=== PATIENT | female | born 1940 | race Caucasian/White ===

== ENCOUNTER 2019-05-24 10:38 | Observation (INO) | payer MEDICARE, BC ==
[~2019-05-24] VITALS: Ht 165.1 cm; Wt 70.5 kg
[~2019-05-24 10:38] MED LIST: EZET1TAB19 PO; [UNRECOGNIZED DRUG - CODE] PO
[2019-05-24] MEDS ORDERED: diltiazem-D5W 125mg/125ml 125 ML IV ONE (10:48)
[2019-05-24] MEDS ORDERED: diltiazem 5mg/ml 5ml inj. IV ONE ×2 (10:50→11:35)
[2019-05-24] MEDS ORDERED: diltiazem-NS 100mg/100ml 100 ML IV ONE (10:51)
--- NOTE | 2019-05-24 11:00 | NUR ---
Dr. Gomez stated to administer bolud dose of cardizem and hold off on administering drip at this time.
[2019-05-24 11:16] LABS: BASOPHILS # (AUTO) 0.1 X10'3 (0-0.2); EOSINOPHILS % (AUTO) 0.1 % (0-6); HEMATOCRIT 37.9 % (35.0-45.0); MEAN PLATELET VOLUME 6.3 FL (7.4-10.4); MONOCYTES # (AUTO) 0.8 X10'3 (0-0.9); NEUTROPHILS # (AUTO) 7.8 X10'3 (1.8-7.7)
[2019-05-24 11:18] LABS: BASOPHILS % (AUTO) 0.9 % (0-1); HEMOGLOBIN 13.1 g/dl (12.0-16.0); LYMPHOCYTES # (AUTO) 1.4 X10'3 (1.1-4.8); LYMPHOCYTES % (AUTO) 14.2 % (21-51); MEAN CORPUSCULAR HEMOGLOBIN 30.7 PG (27.0-31.0); MEAN CORPUSCULAR HGB CONC 34.5 g/dL (33.0-36.5); MONOCYTES % (AUTO) 7.7 % (2-12); NEUTROPHILS % (AUTO) 77.1 % (42-75); PLATELET COUNT 756 X10'3 (140-440); RED BLOOD COUNT 4.26 X10'6 (4.20-5.60); WHITE BLOOD COUNT 10.1 X10'3 (4.5-11.0)
[2019-05-24 11:23] LABS: PARTIAL THROMBOPLASTIN TIME 32 SECONDS (22-32)
[2019-05-24 11:27] LABS: ALANINE AMINOTRANSFERASE 24 U/L (12-78); ALBUMIN 3.3 G/DL (3.4-5.0); ALBUMIN/GLOBULIN RATIO 0.7 (1.1-1.5); ALKALINE PHOSPHATASE 107 IU/L (46-116); ANION GAP 11 (8-16); ASPARTATE AMINO TRANSFERASE 14 U/L (10-37); BILIRUBIN,TOTAL 0.4 MG/DL (0.1-1.0); BLOOD UREA NITROGEN 13 MG/DL (7-18); BUN/CREATININE RATIO 12.9 (6.6-38.0); CALCIUM 9.3 MG/DL (8.5-10.1); CHLORIDE 95 MMOL/L (99-107); CREATININE 1.01 MG/DL (0.40-0.90); GLUCOSE 116 MG/DL (70-104); POTASSIUM 3.7 MMOL/L (3.5-5.1); SODIUM 133 MMOL/L (135-145); TOTAL CARBON DIOXIDE 26.8 MMOL/L (24-32); TOTAL PROTEIN 7.9 G/DL (6.4-8.2); eGFR 53 ML/MIN
--- NOTE | 2019-05-24 11:30 | NUR ---
Notified Dr. Gomez regarding heart patients heart rate at 120-140 beats/min afib with RVR Addendum: 05/24/19 at 1144 by HKISER with no change in rate. Dr. Gomez stated he would order another 10 mg IV cardizem as a bolus dose now. Continue to hold off on cardizem drip at this time
[2019-05-24 11:34] LABS: MAGNESIUM 1.9 MG/DL (1.5-2.4)
[2019-05-24] MEDS ORDERED: metoprolol tartrate 1mg/ml inj IV ONE (12:00)
[2019-05-24] MEDS ORDERED: amiodarone 150mg/dext, iso-os 100 ML IV ONE (12:10)
[2019-05-24] MEDS ORDERED: etomidate 2mg/ml inj. IV ONE (12:10)
--- NOTE | 2019-05-24 12:48 | NUR ---
Synchronized Cardioversion with 75 J, rhythm converted at 1247 to normal sinus rhythm at 82 beats/min. Addendum: 05/24/19 at 1254 by HKISER Etomidate administered at 1245.
[2019-05-24] MEDS: amiodarone/D5 360MG/200ML BAG 200 ML IV SCH ×2 (13:19→18:32)
[2019-05-24] MEDS ORDERED: acetaminophen 325mg tablet PO PRN (13:20)
[2019-05-24] MEDS ORDERED: ondansetron/PF 4mg/2ml inj IV PRN (13:20)
[2019-05-24] MEDS ORDERED: mag hydrox/Alum hydrox/simeth 30ml oral suspension PO PRN (13:20)
[2019-05-24] MEDS ORDERED: magnesium hydroxide 30ml (MOM) UD suspension PO PRN (13:20)
[2019-05-24] MEDS ORDERED: TIMO5DRO32 EACHEYE (13:57)
[2019-05-24] MEDS ORDERED: APIX5TAB3 PO (13:57)
[2019-05-24] MEDS ORDERED: DILT-35 PO (13:57)
[2019-05-24 15:00] VITALS: BP 149/93
[2019-05-24] MEDS: normal saline 1000ml 1,000 ML IV SCH (15:14)
--- NOTE | 2019-05-24 15:30 | NUR ---
Patient in room PCU 3015. I have received report from Neal DIMAS, ED and had the opportunity to ask questions and assume patient care.
--- NOTE | 2019-05-24 15:55 | NUR ---
Pt arrive to floor at 1545. Pt oriented to room and call light. Pt hooked up to mobile 64. Pt's vitals WNL
[2019-05-24 16:00] VITALS: BP 149/93
[2019-05-24] MEDS ORDERED: OMEP20CA11 PO (16:49)
[2019-05-24] MEDS ORDERED: AMLO-314 PO (16:49)
[2019-05-24] MEDS ORDERED: EZET1TAB33 PO (16:49)
[2019-05-24] MEDS ORDERED: DOCU-148 PO (16:49)
[2019-05-24] MEDS ORDERED: OFLO5DRO5 OP (16:49)
[2019-05-24 17:00] VITALS: BP 139/85
[2019-05-24 18:00] VITALS: BP 156/86
--- NOTE | 2019-05-24 18:15 | NUR ---
Problems reprioritized. Patient report given, questions answered & plan of care reviewed with Joyce DIMAS.
[2019-05-24 20:00] VITALS: BP 129/66
[2019-05-24] MEDS: ofloxacin 0.3% 5ml otic drops EACH EAR SCH (21:00)
--- NOTE | 2019-05-24 21:04 | NUR ---
pt was found out on the floor and she stated that she put her foot on the table and slipped on the ground while trying to use the restroom. pt was able to get up by herself even when staff offered help. Addendum: 05/25/19 at 0649 by Joyce Oliva RN notes was putting on the wrong pt, pt did not fall on 05/24, charge nurse and day attending nurse noted
[2019-05-24] MEDS: apixaban 5mg tablet PO SCH (21:18)
[2019-05-24] MEDS: diltiazem CD 120mg capsule (once-daily) PO SCH (21:19)
[2019-05-24 22:00] VITALS: BP 143/78
[2019-05-25] VITALS (8 sets, daily range): BP systolic 105–154; BP diastolic 63–86
[2019-05-25] MEDS: amiodarone/D5 360MG/200ML BAG 200 ML IV SCH ×2 (00:18→07:57)
[2019-05-25 02:19] LABS: EOSINOPHILS % (AUTO) 0.3 % (0-6); HEMOGLOBIN 11.6 g/dl (12.0-16.0); LYMPHOCYTES # (AUTO) 1.9 X10'3 (1.1-4.8); MONOCYTES # (AUTO) 0.6 X10'3 (0-0.9)
[2019-05-25 02:20] LABS: BASOPHILS # (AUTO) 0.1 X10'3 (0-0.2); BASOPHILS % (AUTO) 0.8 % (0-1); HEMATOCRIT 33.5 % (35.0-45.0); LYMPHOCYTES % (AUTO) 25.7 % (21-51); MEAN CORPUSCULAR HEMOGLOBIN 30.6 PG (27.0-31.0); MEAN CORPUSCULAR HGB CONC 34.5 g/dL (33.0-36.5); MEAN CORPUSCULAR VOLUME 88.8 FL (78-98); MEAN PLATELET VOLUME 6.1 FL (7.4-10.4); MONOCYTES % (AUTO) 7.7 % (2-12); NEUTROPHILS # (AUTO) 4.9 X10'3 (1.8-7.7); NEUTROPHILS % (AUTO) 65.5 % (42-75); PLATELET COUNT 655 X10'3 (140-440); RED BLOOD COUNT 3.78 X10'6 (4.20-5.60); RED CELL DISTRIBUTION WIDTH 15.8 % (11.5-14.5); WHITE BLOOD COUNT 7.5 X10'3 (4.5-11.0)
[2019-05-25 02:32] LABS: ALBUMIN 2.7 G/DL (3.4-5.0); ANION GAP 6 (8-16); BLOOD UREA NITROGEN 11 MG/DL (7-18); BUN/CREATININE RATIO 14.3 (6.6-38.0); CHLORIDE 97 MMOL/L (99-107); CREATININE 0.77 MG/DL (0.40-0.90); GLUCOSE 102 MG/DL (70-104); SODIUM 131 MMOL/L (135-145); TOTAL CARBON DIOXIDE 28.5 MMOL/L (24-32); eGFR 72 ML/MIN
[2019-05-25 02:35] LABS: POTASSIUM 2.8 MMOL/L (3.5-5.1)
[2019-05-25] MEDS ORDERED: potassium CL 10mEq/100ml bag 100 ML IV PRN (02:55)
[2019-05-25] MEDS ORDERED: potassium Cl 20 mEq SR tablet PO PRN (02:55)
[2019-05-25] MEDS: potassium Cl 20 mEq SR tablet PO PRN ×3 (03:12→20:40)
--- NOTE | 2019-05-25 06:00 | NUR ---
Patient in room PCU 3015. I have received report from Joyce DIMAS and had the opportunity to ask questions and assume patient care.
[2019-05-25] MEDS: normal saline 1000ml 1,000 ML IV SCH (06:25)
[2019-05-25] MEDS: ofloxacin 0.3% 5ml otic drops EACH EAR SCH ×4 (08:00→20:41)
[2019-05-25] MEDS: pantoprazole 40mg Tablet.DR PO SCH (08:00)
[2019-05-25] MEDS: apixaban 5mg tablet PO SCH ×2 (08:01→20:40)
[2019-05-25] MEDS: docusate sod 100mg capsule PO SCH (08:01)
[2019-05-25] MEDS: atorvastatin 20mg tablet PO SCH (08:01)
[2019-05-25] MEDS: ezetimibe 10mg tablet PO SCH (08:01)
[2019-05-25] MEDS: timolol maleate 0.25% ophthalmic drops 10ml EACHEYE SCH (08:02)
[2019-05-25] MEDS: amiodarone 200mg tablet PO SCH ×3 (10:10→20:40)
--- NOTE | 2019-05-25 15:48 | NUR ---
Malnutrition consult: Pt and son seen at bedside. Pt reports 30 lb wt loss in 6 months r/t decreased appetite with unknown etiology. This is severe wt loss of 16% in 6 months. Per son patient was on a cruise 1 month ago and ate really well during that time. Pt also states if she doesn't have enough of an appetite for a meal she will drink and Ensure. Both pt and son report pt eating almost 100% of lunch today and pt states her appetite is really good now and has been over the last month. Pt with no significant decrease in muscle strength, no edema, and no visible fat/muscle wasting. Pt currently lacks a minimum of two criteria for malnutrition. Son requests community referrals to help with meal preparation as pt does not cook and currently pt lives with daughter who also does not cook, RD consulted SW. Pt denies any food allergies, difficulty chewing/swallowing, or constipation/diarrhea. RD contact information provided. Will continue to follow. Addendum: 05/25/19 at [address] Amended: Links added.
--- NOTE | 2019-05-25 17:31 | NUR ---
Problems reprioritized. Patient report given, questions answered & plan of care reviewed with Talia DIMAS.
--- NOTE | 2019-05-25 17:39 | NUR ---
Patient in room PCU 3018. I have received report from WING Willis and had the opportunity to ask questions and assume patient care.
[2019-05-25] MEDS: diltiazem CD 120mg capsule (once-daily) PO SCH (20:40)
[2019-05-26 03:00] VITALS: BP 150/85
[2019-05-26 04:12] LABS: BASOPHILS # (AUTO) 0.1 X10'3 (0-0.2); LYMPHOCYTES # (AUTO) 1.4 X10'3 (1.1-4.8); MEAN PLATELET VOLUME 6.2 FL (7.4-10.4)
[2019-05-26 04:14] LABS: EOSINOPHILS % (AUTO) 0.5 % (0-6); HEMOGLOBIN 12.6 g/dl (12.0-16.0); LYMPHOCYTES % (AUTO) 22.4 % (21-51); MEAN CORPUSCULAR HEMOGLOBIN 31.1 PG (27.0-31.0); MEAN CORPUSCULAR HGB CONC 34.9 g/dL (33.0-36.5); MEAN CORPUSCULAR VOLUME 89.2 FL (78-98); MONOCYTES # (AUTO) 0.5 X10'3 (0-0.9); MONOCYTES % (AUTO) 8.7 % (2-12); NEUTROPHILS # (AUTO) 4.2 X10'3 (1.8-7.7); NEUTROPHILS % (AUTO) 67.4 % (42-75); PLATELET COUNT 600 X10'3 (140-440); RED BLOOD COUNT 4.03 X10'6 (4.20-5.60); RED CELL DISTRIBUTION WIDTH 16.1 % (11.5-14.5); WHITE BLOOD COUNT 6.2 X10'3 (4.5-11.0)
[2019-05-26 04:18] LABS: ALBUMIN 2.9 G/DL (3.4-5.0); ANION GAP 6 (8-16); BLOOD UREA NITROGEN 7 MG/DL (7-18); BUN/CREATININE RATIO 9.9 (6.6-38.0); CALCIUM 9.2 MG/DL (8.5-10.1); CHLORIDE 102 MMOL/L (99-107); CREATININE 0.71 MG/DL (0.40-0.90); GLUCOSE 94 MG/DL (70-104); MAGNESIUM 1.7 MG/DL (1.5-2.4); POTASSIUM 3.8 MMOL/L (3.5-5.1); SODIUM 134 MMOL/L (135-145); TOTAL CARBON DIOXIDE 26.2 MMOL/L (24-32); eGFR 79 ML/MIN
[2019-05-26 06:00] VITALS: BP 163/86
--- NOTE | 2019-05-26 06:07 | NUR ---
Problems reprioritized. Patient report given, questions answered & plan of care reviewed with WING Foy.
--- NOTE | 2019-05-26 06:54 | NUR ---
Patient in room PCU 3018A. I have received report from Talia DIMAS and had the opportunity to ask questions and assume patient care.
[2019-05-26] MEDS: timolol maleate 0.25% ophthalmic drops 10ml EACHEYE SCH (08:00)
[2019-05-26] MEDS: ofloxacin 0.3% 5ml otic drops EACH EAR SCH (08:00)
[2019-05-26] MEDS: docusate sod 100mg capsule PO SCH (08:00)
[2019-05-26] MEDS: ezetimibe 10mg tablet PO SCH (08:23)
[2019-05-26] MEDS: atorvastatin 20mg tablet PO SCH (08:24)
[2019-05-26] MEDS: pantoprazole 40mg Tablet.DR PO SCH (08:24)
[2019-05-26] MEDS: apixaban 5mg tablet PO SCH (08:24)
[2019-05-26] MEDS: amiodarone 200mg tablet PO SCH (08:25)
--- NOTE | 2019-05-26 09:01 | NUR ---
Paged field support technician [phone]. Lesia Gamez. Please call regarding ETA for scheduled EKG if in house. Thank you
--- NOTE | 2019-05-26 09:49 | NUR ---
I have reviewed physical assessment of orientee Mayela DIMAS and agree with assessment.
[2019-05-26] MEDS ORDERED: AMIO200T61 PO (10:23)
--- NOTE | 2019-05-26 11:20 | NUR ---
New hire documentation: I have reviewed and agree with all interventions, assessments performed and documented by Mayela DIMAS .
--- NOTE | 2019-05-26 11:32 | NUR ---
Per MD order patient is stable for discharge. Discharge packet printed and reviewed with patient and family. Medications called in to pharmacy of choice. Tele monitor and IV removed with cannula intact. Patient sent home with all belongings. Escorted to private vehicle via wheelchair.
== END 2019-05-26 11:26 | disposition home or self-care (01) ==
LOC: ER 10:38 → ED HOLD 13:32 → PCU 3S 15:43
PROVIDERS: ADMIT Family Medicine; ATTEND Family Medicine
DX: I48.20 Chronic atrial fibrillation, unspecified (principal); E78.5 Hyperlipidemia, unspecified; I10 Essential (primary) hypertension; I27.20 Pulmonary hypertension, unspecified; M19.90 Unspecified osteoarthritis, unspecified site; Z79.01 Long term (current) use of anticoagulants; Z85.3 Personal history of malignant neoplasm of breast; Z79.899 Other long term (current) drug therapy
CPT/HCPCS: 36415; 71045; 80048; 80053; 83735; 83880; 84484; 85025; 85610; 85730; 87081; 93005; 96365; 96366; 96375; 96376; 99284; G0378; J0282; J7030; J3490

== ENCOUNTER 2019-06-12 15:58 | Emergency (ER) | payer MEDICARE, BC ==
[~2019-06-12] VITALS: Ht 165.1 cm; Wt 68.2 kg
[~2019-06-12 15:58] MED LIST changes: +AMIO200T61 PO; +AMLO-314 PO; +APIX5TAB3 PO; +DILT-35 PO; +DOCU-148 PO; -EZET1TAB19 PO; +EZET1TAB33 PO; +OFLO5DRO5 OP; +OMEP20CA11 PO; +TIMO5DRO32 EACHEYE; -[UNRECOGNIZED DRUG - CODE] PO
[2019-06-12 16:49] LABS: BASOPHILS # (AUTO) 0.1 X10'3 (0-0.2); BASOPHILS % (AUTO) 0.9 % (0-1); EOSINOPHILS # (AUTO) 0.1 X10'3 (0-0.9); EOSINOPHILS % (AUTO) 0.8 % (0-6); HEMATOCRIT 37.1 % (35.0-45.0); HEMOGLOBIN 12.7 g/dl (12.0-16.0); LYMPHOCYTES # (AUTO) 1.6 X10'3 (1.1-4.8); LYMPHOCYTES % (AUTO) 26.4 % (21-51); MEAN CORPUSCULAR HEMOGLOBIN 30.5 PG (27.0-31.0); MEAN CORPUSCULAR HGB CONC 34.3 g/dL (33.0-36.5); MEAN CORPUSCULAR VOLUME 88.8 FL (78-98); MONOCYTES # (AUTO) 0.6 X10'3 (0-0.9); MONOCYTES % (AUTO) 9.1 % (2-12); NEUTROPHILS # (AUTO) 3.8 X10'3 (1.8-7.7); NEUTROPHILS % (AUTO) 62.8 % (42-75); PLATELET COUNT 520 X10'3 (140-440); RED BLOOD COUNT 4.18 X10'6 (4.20-5.60); RED CELL DISTRIBUTION WIDTH 15.6 % (11.5-14.5); WHITE BLOOD COUNT 6.1 X10'3 (4.5-11.0)
[2019-06-12 16:59] LABS: ALANINE AMINOTRANSFERASE 15 U/L (12-78); ALBUMIN 3.3 G/DL (3.4-5.0); ALBUMIN/GLOBULIN RATIO 0.7 (1.1-1.5); ALKALINE PHOSPHATASE 131 IU/L (46-116); ANION GAP 9 (8-16); ASPARTATE AMINO TRANSFERASE 11 U/L (10-37); BILIRUBIN,TOTAL 0.3 MG/DL (0.1-1.0); BLOOD UREA NITROGEN 6 MG/DL (7-18); BUN/CREATININE RATIO 6.5 (6.6-38.0); CALCIUM 9.3 MG/DL (8.5-10.1); CHLORIDE 90 MMOL/L (99-107); CREATININE 0.93 MG/DL (0.40-0.90); GLUCOSE 105 MG/DL (70-104); POTASSIUM 3.7 MMOL/L (3.5-5.1); SODIUM 124 MMOL/L (135-145); TOTAL CARBON DIOXIDE 24.7 MMOL/L (24-32); TOTAL PROTEIN 7.9 G/DL (6.4-8.2); eGFR 58 ML/MIN
[2019-06-12 18:09] LABS: CLARITY,URINE CLOUDY (Clear); COLOR,URINE YELLOW (Yellow); GLUCOSE, URINE NEGATIVE (Neg); KETONES,URINE 15 mg/dl (Neg); LEUKOCYTE ESTERASE ,URINE LARGE (Neg); NITRITES, URINE NEGATIVE (Neg); OCCULT BLOOD,URINE LARGE (Neg); PROTEIN,URINE TRACE mg/dl (Neg); UROBILINOGEN,URINE 0.2 E.U/dL (0.2-1.0)
[2019-06-12] MEDS ORDERED: normal saline 1000ML IV soln IVB ONE (18:20)
[2019-06-12] MEDS ORDERED: ondansetron/PF 4mg/2ml inj IV ONE (18:20)
[2019-06-12 18:27] LABS: UA COLLECTION TYPE STRAIGHT CATH
[2019-06-12 18:29] LABS: WBC,URINE TNTC /HPF (0-4)
[2019-06-12 18:30] LABS: BACTERIA,URINE 3+ /HPF (Neg); SQUAMOUS EPITHELIAL CELL,UR FEW /LPF (FEW)
[2019-06-12] MEDS ORDERED: CefTRIAXone 2gm/D5W 50ml 50 ML IV ONE (18:40)
[2019-06-12] MEDS ORDERED: CEPH250T PO (18:45)
[2019-06-12 19:06] VITALS: BP 147/70
== END 2019-06-12 20:15 | disposition home or self-care (01) ==
LOC: ER 16:01
DX: N39.0 Urinary tract infection, site not specified (principal); E86.0 Dehydration; I48.91 Unspecified atrial fibrillation; Z88.5 Allergy status to narcotic agent; Z91.09 Other allergy status, other than to drugs and biological substances
CPT/HCPCS: 36415; 80053; 81001; 83605; 84145; 85025; 87040; 87088; 96365; 96375; 99283; J0696; J2405; 96366

== ENCOUNTER 2019-06-28 05:13 | Inpatient (IN) | payer MEDICARE, BC ==
[2019-06-28] VITALS (15 sets, daily range): BP systolic 142–179; BP diastolic 67–110
[~2019-06-28] VITALS: Ht 165.1 cm; Wt 68.0 kg
[~2019-06-28 05:13] MED LIST changes: -AMIO200T61 PO; -DOCU-148 PO; -OFLO5DRO5 OP; +VALS160T2 PO
[2019-06-28] MEDS ORDERED: famotidine 20mg tablet PO ONE (05:30)
[2019-06-28] MEDS ORDERED: cefazolin/dext.iso 2gm/100ml 100 ML IV ONE (05:30)
[2019-06-28] MEDS ORDERED: LIDOcaine 1% (10mg/ml) 2ml vial ONE (05:46)
[2019-06-28] MEDS: ringers solution, lacted 1,000 ML IV SCH ×2 (05:52→11:19)
[2019-06-28] MEDS ORDERED: AMIO200T61 PO (05:57)
[2019-06-28 06:21] LABS: BASOPHILS # (AUTO) 0.1 X10'3 (0-0.2); BASOPHILS % (AUTO) 0.9 % (0-1); EOSINOPHILS # (AUTO) 0.1 X10'3 (0-0.9); EOSINOPHILS % (AUTO) 1.4 % (0-6); LYMPHOCYTES # (AUTO) 1.2 X10'3 (1.1-4.8); LYMPHOCYTES % (AUTO) 19.4 % (21-51); MEAN CORPUSCULAR HGB CONC 34.3 g/dL (33.0-36.5); MEAN CORPUSCULAR VOLUME 90.6 FL (78-98); MEAN PLATELET VOLUME 6.2 FL (7.4-10.4); MONOCYTES # (AUTO) 0.7 X10'3 (0-0.9); MONOCYTES % (AUTO) 10.8 % (2-12); NEUTROPHILS # (AUTO) 4.2 X10'3 (1.8-7.7); NEUTROPHILS % (AUTO) 67.5 % (42-75); PRE OP HEMATOCRIT 33.3 % (35.0-45.0); PRE OP HEMOGLOBIN 11.4 g/dL (12.0-16.0); PRE OP PLATELET COUNT 586 X10'3 (140-440); RED BLOOD COUNT 3.68 X10'6 (4.20-5.60); RED CELL DISTRIBUTION WIDTH 15.2 % (11.5-14.5)
[2019-06-28] MEDS ORDERED: ceFAZolin 1000mg inj ONE (06:22)
[2019-06-28] MEDS ORDERED: BUPIVAcaine/PF 2.5 mg/ml (0.25%) 30ml vial ONE (06:23)
[2019-06-28 06:38] LABS: ALBUMIN 2.9 G/DL (3.4-5.0); ALBUMIN/GLOBULIN RATIO 0.7 (1.1-1.5); ALKALINE PHOSPHATASE 103 IU/L (46-116); BLOOD UREA NITROGEN 7 MG/DL (7-18); BUN/CREATININE RATIO 7.8 (6.6-38.0); CHLORIDE 98 MMOL/L (99-107); PRE OP ALT 11 U/L (30-65); PRE OP ANION GAP 9 (8-16); PRE OP AST 11 U/L (10-37); PRE OP BILIRUB, TOTAL 0.3 MG/DL (0.0-1.0); PRE OP GLUCOSE 102 MG/DL (70-104); PRE OP POTASSIUM 3.7 MMOL/L (3.4-5.1); PRE OP SODIUM 134 MMOL/L (135-145); TOTAL CARBON DIOXIDE 27.5 MMOL/L (24-32); eGFR 60 ML/MIN
[2019-06-28] MEDS ORDERED: neostigmine methylsulfate 1 MG/ML 10ml vial ONE (06:55)
[2019-06-28] MEDS ORDERED: sevoflurane 250ml liquid IH ONE (06:55)
[2019-06-28] MEDS ORDERED: glycopyrrolate 0.2mg/ml inj ONE (06:55)
[2019-06-28] MEDS ORDERED: desflurane 240ml liquid inh. IH ONE (06:55)
[2019-06-28] MEDS ORDERED: ondansetron/PF 4mg/2ml inj IV PRN ×2 (07:00→08:20)
[2019-06-28] MEDS ORDERED: proCHLORperazine 10 MG/2 ml inj IV PRN (07:00)
[2019-06-28] MEDS ORDERED: morphine 4 MG/ML inj SYRINge IV PRN ×4 (07:00→09:05)
[2019-06-28] MEDS ORDERED: ringers solution, lacted 1,000 ML IV SCH (07:00)
[2019-06-28] MEDS ORDERED: meperidine/PF 25mg/ml syringe IV PRN ×3 (07:00)
[2019-06-28] MEDS ORDERED: midazolam 2 mg/2 ml injection ONE (07:08)
[2019-06-28] MEDS ORDERED: LIDOcaine 2% (20mg/ml) 5ml vial ONE (07:08)
[2019-06-28] MEDS ORDERED: fentaNYL/PF 50MCG/1 ML 2ML syringe ONE (07:08)
[2019-06-28] MEDS ORDERED: dexamethasone sod phosphate 4mg/ml inj. ONE (07:08)
[2019-06-28] MEDS ORDERED: ketorolac trometh. 30mg/ml inj. ONE (07:08)
[2019-06-28] MEDS ORDERED: propofol inj 20 ML IV ONE (07:08)
[2019-06-28] MEDS ORDERED: ondansetron/PF 4mg/2ml inj ONE (07:09)
[2019-06-28] MEDS ORDERED: rocuronium 10mg/ml inj IV ONE (07:14)
[2019-06-28] MEDS ORDERED: acetaminophen 1,000mg/100ml IV 100 ML IV ONE (07:22)
[2019-06-28] MEDS ORDERED: CADD PCA waste documentation MC PRN (09:05)
[2019-06-28] MEDS ORDERED: naloxone 0.4 mg/ml inj IV PRN (09:05)
[2019-06-28] MEDS: morphine/NS 5 mg/ml CADD 50 ML IV SCH ×7 (11:11→23:00)
[2019-06-28] MEDS ORDERED: diltiazem CD 120mg capsule (once-daily) PO SCH (21:00)
[2019-06-28] MEDS: apixaban 5mg tablet PO SCH (21:17)
[2019-06-29] VITALS (8 sets, daily range): BP systolic 93–159; BP diastolic 40–76
[2019-06-29] MEDS: morphine/NS 5 mg/ml CADD 50 ML IV SCH ×6 (01:00→11:00)
[2019-06-29] MEDS ORDERED: pantoprazole 40mg Tablet.DR PO SCH (07:30)
[2019-06-29] MEDS ORDERED: ezetimibe 10mg tablet PO SCH (08:00)
[2019-06-29] MEDS ORDERED: timolol 0.5% ophthalmic solution 5ml bottle EACHEYE SCH (08:00)
[2019-06-29] MEDS ORDERED: atorvastatin 20mg tablet PO SCH (08:00)
[2019-06-29] MEDS ORDERED: amiodarone 200mg tablet PO SCH (08:00)
[2019-06-29] MEDS ORDERED: TIMOLOL EACHEYE SCH (08:00)
[2019-06-29] MEDS ORDERED: losartan 50mg tablet PO SCH (08:00)
[2019-06-29] MEDS ORDERED: fentaNYL/PF 50MCG/1 ML 2ML syringe ONE (09:37)
[2019-06-29] MEDS ORDERED: MIDAZolam 5mg/5ml vial ONE (09:38)
[2019-06-29] MEDS ORDERED: LIDOcaine Viscous 15ml cup ONE (09:38)
[2019-06-29] MEDS: apixaban 5mg tablet PO SCH (11:21)
[2019-06-29] MEDS ORDERED: HYDR-4383 PO (15:32)
[2019-06-29] MEDS ORDERED: CADD PCA waste documentation MC PRN ×2 (16:10→18:00)
== END 2019-06-29 16:12 | disposition home or self-care (01) | DRG 419 ==
LOC: PAS 05:13 → SUR 3N 08:17
PROVIDERS: ADMIT Surgery; ATTEND Surgery
PROC: 0FT44ZZ Resection of Gallbladder, Percutaneous Endoscopic Approach (ICD-10-PCS; principal; 2019-06-28 06:55)
PROC: 0DB98ZX Excision of Duodenum, Via Natural or Artificial Opening Endoscopic, Diagnostic (ICD-10-PCS; 2019-06-29)
PROC: 0DB68ZX Excision of Stomach, Via Natural or Artificial Opening Endoscopic, Diagnostic (ICD-10-PCS; 2019-06-29)
DX: K80.20 Calculus of gallbladder without cholecystitis without obstruction (principal); E78.5 Hyperlipidemia, unspecified; J45.909 Unspecified asthma, uncomplicated; K29.70 Gastritis, unspecified, without bleeding; H04.129 Dry eye syndrome of unspecified lacrimal gland; K21.9 Gastro-esophageal reflux disease without esophagitis; Z79.01 Long term (current) use of anticoagulants; Z80.3 Family history of malignant neoplasm of breast; Z82.49 Family history of ischemic heart disease and other diseases of the circulatory system; Z79.899 Other long term (current) drug therapy
CPT/HCPCS: 36415; 43239; 80053; 85025; 88304; 99153; A4215; A4618; A4620; A7000; C1758; G0378; J0131; J0690; J1100; J1885; J2001; J2175; J2250; J2270; J2405; J2704; J2710; J3010; J3490; J7040; J7120

== ENCOUNTER 2019-11-24 14:11 | Emergency (ER) | payer MEDICARE, BC ==
[~2019-11-24] VITALS: Ht 165.1 cm; Wt 68.2 kg
[~2019-11-24 14:11] MED LIST changes: +AMIO200T61 PO; -AMLO-314 PO; +HYDR-4383 PO; -OMEP20CA11 PO; +OMEP20CA15 PO
--- NOTE | 2019-11-24 15:09 | NUR ---
CALL [place] WHEN PATIENT IS DC READY
[2019-11-24 15:33] VITALS: BP 148/78
--- NOTE | 2019-11-24 15:37 | NUR ---
pt able to dress self and transfer from gurney to wheelchair with min assist, no dizziness, no lightheadness
== END 2019-11-24 15:37 | disposition home or self-care (01) ==
LOC: ER 14:11
DX: S00.83XA Contusion of other part of head, initial encounter (principal); I48.91 Unspecified atrial fibrillation; Z98.890 Other specified postprocedural states; Z88.5 Allergy status to narcotic agent; Z88.8 Allergy status to other drugs, medicaments and biological substances; Z79.01 Long term (current) use of anticoagulants; W01.198A Fall on same level from slipping, tripping and stumbling with subsequent striking against other object, initial encounter; Y93.89 Activity, other specified; Y92.89 Other specified places as the place of occurrence of the external cause; Y99.8 Other external cause status
CPT/HCPCS: 70450; 72125; 99285

== ENCOUNTER 2020-02-01 14:29 | Emergency (ER) | payer MEDICARE, BC ==
[~2020-02-01] VITALS: Ht 165.1 cm; Wt 68.2 kg
[2020-02-01] MEDS ORDERED: ondansetron/PF 4mg/2ml inj IV ONE (14:55)
[2020-02-01] MEDS ORDERED: normal saline 1000ML IV soln IVB ONE (14:55)
[2020-02-01 15:06] LABS: BASOPHILS % (AUTO) 0.6 % (0-1); EOSINOPHILS % (AUTO) 0.7 % (0-6); HEMATOCRIT 34.1 % (35.0-45.0); HEMOGLOBIN 11.6 g/dl (12.0-16.0); LYMPHOCYTES # (AUTO) 0.9 X10'3 (1.1-4.8); LYMPHOCYTES % (AUTO) 15.2 % (21-51); MEAN CORPUSCULAR HEMOGLOBIN 30.1 PG (27.0-31.0); MEAN CORPUSCULAR HGB CONC 33.9 g/dL (33.0-36.5); MEAN CORPUSCULAR VOLUME 88.8 FL (78-98); MEAN PLATELET VOLUME 6.1 FL (7.4-10.4); MONOCYTES # (AUTO) 0.6 X10'3 (0-0.9); MONOCYTES % (AUTO) 10.6 % (2-12); NEUTROPHILS # (AUTO) 4.3 X10'3 (1.8-7.7); NEUTROPHILS % (AUTO) 72.9 % (42-75); PLATELET COUNT 569 X10'3 (140-440); RED BLOOD COUNT 3.84 X10'6 (4.20-5.60); RED CELL DISTRIBUTION WIDTH 13.9 % (11.5-14.5); WHITE BLOOD COUNT 5.9 X10'3 (4.5-11.0)
--- NOTE | 2020-02-01 15:10 | NUR ---
patient to ct.
[2020-02-01 15:23] LABS: ALANINE AMINOTRANSFERASE 16 U/L (12-78); ALBUMIN 3.3 G/DL (3.4-5.0); ALBUMIN/GLOBULIN RATIO 0.8 (1.1-1.5); ALKALINE PHOSPHATASE 91 IU/L (46-116); ANION GAP 10 (8-16); ASPARTATE AMINO TRANSFERASE 14 U/L (10-37); BILIRUBIN,TOTAL 0.2 MG/DL (0.1-1.0); BLOOD UREA NITROGEN 15 MG/DL (7-18); BUN/CREATININE RATIO 14.3 (6.6-38.0); CALCIUM 9.1 MG/DL (8.5-10.1); CHLORIDE 91 MMOL/L (99-107); CREATININE 1.05 MG/DL (0.40-0.90); GLUCOSE 129 MG/DL (70-104); POTASSIUM 4.2 MMOL/L (3.5-5.1); SODIUM 128 MMOL/L (135-145); TOTAL CARBON DIOXIDE 26.6 MMOL/L (24-32); TOTAL PROTEIN 7.2 G/DL (6.4-8.2); eGFR 50 ML/MIN
[2020-02-01 15:31] LABS: MAGNESIUM 2.1 MG/DL (1.5-2.4)
[2020-02-01 16:25] LABS: CLARITY,URINE CLEAR (Clear); COLOR,URINE YELLOW (Yellow); GLUCOSE, URINE NEGATIVE (Neg); KETONES,URINE NEGATIVE (Neg); LEUKOCYTE ESTERASE ,URINE NEGATIVE (Neg); NITRITES, URINE NEGATIVE (Neg); OCCULT BLOOD,URINE MODERATE (Neg); PH,URINE 7.5 (4.8-8.0); PROTEIN,URINE NEGATIVE (Neg); UROBILINOGEN,URINE 0.2 E.U/dL (0.2-1.0)
[2020-02-01 16:26] LABS: UA COLLECTION TYPE STRAIGHT CATH
[2020-02-01 16:30] LABS: WBC,URINE 0-4 /HPF (0-4)
[2020-02-01 16:31] LABS: BACTERIA,URINE NONE SEEN /HPF (Neg); MUCUS STRANDS NONE SEEN /LPF (Neg); SQUAMOUS EPITHELIAL CELL,UR NONE SEEN /LPF (FEW)
[2020-02-01 17:18] VITALS: BP 143/60
== END 2020-02-01 17:05 | disposition home or self-care (01) ==
LOC: ER 14:30
DX: S00.03XA Contusion of scalp, initial encounter (principal); R53.1 Weakness; E87.1 Hypo-osmolality and hyponatremia; I48.91 Unspecified atrial fibrillation; Z98.890 Other specified postprocedural states; Z88.5 Allergy status to narcotic agent; Z88.8 Allergy status to other drugs, medicaments and biological substances; Z79.01 Long term (current) use of anticoagulants; Z79.899 Other long term (current) drug therapy; W18.39XA Other fall on same level, initial encounter; Y93.89 Activity, other specified; Y92.89 Other specified places as the place of occurrence of the external cause; Y99.8 Other external cause status
CPT/HCPCS: 36415; 70450; 71045; 80053; 81001; 83735; 83880; 84484; 85025; 93005; 96374; 99285; J2405; J7030

== ENCOUNTER → 2022-02-05 | Emergency (ER) | payer MEDICARE, BC ==
[~2022-02-05] VITALS: Ht 165.1 cm; Wt 98.6 kg
[~2022-02-05] MED LIST changes: -AMIO200T61 PO; +CEPH500C2 PO; +DOCU-148 PO; +EZET-59 PO; -EZET1TAB33 PO; -HYDR-4383 PO; +LEVO50TA8 PO; -OMEP20CA15 PO; -TIMO5DRO32 EACHEYE
[2022-02-05 15:31] VITALS: BP 148/69
== END | disposition home or self-care (01) ==
LOC: ER 15:24
DX: N39.0 Urinary tract infection, site not specified (principal); R42 Dizziness and giddiness; R11.0 Nausea; R51.9 Headache, unspecified; I48.91 Unspecified atrial fibrillation; I10 Essential (primary) hypertension; Z85.3 Personal history of malignant neoplasm of breast; Z98.890 Other specified postprocedural states; Z88.5 Allergy status to narcotic agent; Z88.8 Allergy status to other drugs, medicaments and biological substances; Z79.2 Long term (current) use of antibiotics; Z79.899 Other long term (current) drug therapy
CPT/HCPCS: 99283